=== PATIENT | male | born 1965 | race Caucasian/White ===

== ENCOUNTER 2020-08-28 16:08 | Outpatient (REF) | payer OTHER, SELFPAY ==
[2020-09-01 21:20] LABS: Patient Race White; SARS-CoV-2 RNA Undetected (Undetected); SARS-CoV-2 Specimen Source Nasal
== END 2020-08-28 16:28 ==
LOC: NCHCN 16:08
PROVIDERS: PCP Registered Nurse; Visit Provider Registered Nurse
DX: Z20.828 Contact with and (suspected) exposure to other viral communicable diseases (principal)
CPT/HCPCS: U0003

== ENCOUNTER 2022-12-12 13:25 | Outpatient (REF) | payer BC, SELFPAY ==
[2022-12-12 15:29] LABS: ALT 22 U/L (16-63); AST 19 U/L (15-37); Albumin 3.9 g/dL (3.4-5.0); Alkaline Phosphatase 57 U/L (46-116); Anion Gap 6.6 mmol/L (3-11); BUN 14 mg/dL (7-18); Bilirubin, Total 1.1 mg/dL (0.2-1.0); CO2 30.4 mmol/L (21.0-32.0); Calcium 9.7 mg/dL (8.5-10.1); Calculated LDL 75 mg/dL (<100); Chloride 104 mmol/L (98-107); Cholesterol 160 mg/dL (<200); Estimated GFR 89.44 (mL/min/1.73m2); Glucose 109 mg/dL (74-106); HDL Cholesterol 75 mg/dL (40-60); Potassium 4.4 mmol/L (3.5-5.1); Sodium 141 mmol/L (136-145); TSH 0.94 uIU/mL (0.36-3.74); Triglyceride 52 mg/dL (<150)
[2022-12-15 09:56] LABS: Hepatitis C Ab w Rflx HCV PCR Negative (Negative)
== END 2022-12-12 13:26 | disposition home or self-care (01) ==
LOC: NCHCN 13:25
PROVIDERS: PCP Registered Nurse; Visit Provider Registered Nurse
DX: Z00.00 Encounter for general adult medical examination without abnormal findings (principal); Z13.220 Encounter for screening for lipoid disorders; Z13.228 Encounter for screening for other metabolic disorders; Z11.59 Encounter for screening for other viral diseases; Z13.29 Encounter for screening for other suspected endocrine disorder
CPT/HCPCS: 80053; 80061; 86803; 84443

== ENCOUNTER 2025-01-11 09:37 | Outpatient (REF) | payer BC, SELFPAY ==
[2025-01-11 14:57] LABS: ALT 31 U/L (16-63); AST 22 U/L (15-37); Albumin 4.1 g/dL (3.4-5.0); Alkaline Phosphatase 62 U/L (46-116); Anion Gap 7.7 mmol/L (3-11); BUN 13 mg/dL (7-18); Bilirubin, Total 1.2 mg/dL (0.2-1.0); CO2 32.3 mmol/L (21.0-32.0); CREATININE 1.1 mg/dL (0.70-1.30); Calcium 9.5 mg/dL (8.5-10.1); Chloride 102 mmol/L (98-107); Glucose 110 mg/dL (74-106); Potassium 4.4 mmol/L (3.5-5.1); Sodium 142 mmol/L (136-145); Total Protein 7.4 g/dL (6.4-8.2)
== END 2025-01-11 09:38 | disposition home or self-care (01) ==
LOC: NCHCN 09:37
PROVIDERS: PCP Registered Nurse; Visit Provider Family Medicine
DX: R74.8 Abnormal levels of other serum enzymes (principal)
CPT/HCPCS: 80053; 82248